=== PATIENT | female | born 1985 | race Hispanic/Latino ===

== ENCOUNTER 2017-12-18 23:55 | Emergency (ER) | payer OTHER ==
[2017-12-19 00:08] VITALS: BMI 22.3
[2017-12-19 00:11] VITALS: BP 128/85; PULSE 62; RESP 18; TEMP 98.2; O2SAT 100
--- NOTE | 2017-12-19 00:42 | ED PDOC ---
HPI: Abdomen Time Seen by Provider: 12/19/17 00:12 Chief Complaint (Nursing): Abdominal Pain History Per: Patient Additional Complaint(s): Pt. states at approximately 2300 today she had a sudden onset of diffuse abd pain which eventually localized to b/l pelvic area and has since resolved. Pt. states at 2320 she took aleve with good relief of pain. Pain resolved while waiting in ED waiting room. Of note, pt. states she currently has an IUD in place. Her IUD was inserted back in 05/2017. Last BM was yesterday and as normal. Denies dysuria, hematuria, vaginal bleeding, N/V/D, fever, back pain. Past Medical History Reviewed: Historical Data, Nursing Documentation, Vital Signs Vital Signs: Last Vital Signs Temp 98.2 F 12/19/17 00:09 Pulse 62 12/19/17 00:09 Resp 18 12/19/17 00:09 BP 128/85 12/19/17 00:09 Pulse Ox 100 12/19/17 02:32 - Medical History PMH: HTN - Family History Family History: States: No Known Family Hx - Home Medications Home Medications: Ambulatory Orders Medication Instructions Recorded Metoprolol Tartrate [Lopressor] 12.5 mg PO DAILY 12/19/17 - Allergies Allergies/Adverse Reactions: Allergies Allergy/AdvReac Type Severity Reaction Status Date / Time Penicillins Allergy RASH Verified 12/19/17 00:09 Review of Systems ROS Statement: Except As Marked, All Systems Reviewed And Found Negative Gastrointestinal: Positive for: Abdominal Pain Genitourinary Female: Positive for: Pelvic Pain Physical Exam - Physical Exam Appears: Positive for: Well, Non-toxic, No Acute Distress Skin: Positive for: Normal Color, Warm. Negative for: Rash Eye Exam: Positive for: Normal appearance Gastrointestinal/Abdominal: Positive for: Normal Exam, Bowel Sounds, Soft. Negative for: Tenderness (including pelvic area), Guarding, Rebound Back: Positive for: Normal Inspection. Negative for: L CVA Tenderness, R CVA Tenderness Neurologic/Psych: Positive for: Alert, Oriented (x3) - Laboratory Results Result Diagrams: 12/19/17 00:53 12/19/17 00:53 - ECG O2 Sat by Pulse Oximetry: 100 - Progress ED Course And Treament: Labs ordered. Pt. informed that US is not currently indicated and imaging will depend on lab results. Case d/w Dr. Krishnan who agrees with care and plan. WBC 11.3. CT abd/pelvis w/ IV contrast ordered. Pt. informed of CT order and agrees with care. 0216 CT abd/pelvis w/ IV contrast: 3.3 cm right ovarian corpus luteum cyst. Small amount of complex fluid in the dependent pelvis and dependent portions of the upper abdomen. In the absence of trauma, ovarian cyst rupture could have this appearance. No direct evidence of visceral injury. Dr. Krishnan reviewed CT results and agrees with plan and disposition. Pt. informed of results. Denies trauma. Advised to f/u with her OBGYN for further evaluation and to return to ED immediately if symptoms worsen. Disposition - Clinical Impression Clinical Impression: Ruptured ovarian cyst - Patient ED Disposition Is Patient to be Admitted: No - Disposition Referrals: Jacky Hays MD [Primary Care Provider] - [facility] [Outside] Disposition: Routine/Home Disposition Time: 02:28 Condition: IMPROVED Additional Instructions: FOLLOW UP WITH YOUR OBGYN FOR FURTHER EVALUATION ROOPA VERNON, thank you for letting us take care of you today. Your provider was Reggie Krishnan MD and you were treated for ABD PAIN. The emergency medical care you received today was directed at your acute symptoms. If you were prescribed any medication, please fill it and take as directed. It may take several days for your symptoms to resolve. Return to the Emergency Department if your symptoms worsen, do not improve, or if you have any other problems. Please contact your doctor or call one of the physicians/clinics you have been referred to that are listed on the Patient Visit Information form that is included in your discharge packet. Bring any paperwork you were given at discharge with you along with any medications you are taking to your follow up visit. Our treatment cannot replace ongoing medical care by a primary care provider outside of the emergency department. Thank you for allowing the [facility] team to be part of your care today. If you had an X-Ray or CT scan: A Radiologist will review the ED reading if any change in treatment is needed we will contact you. If you had a blood, urine, or wound culture: It will take several days for the results, if any change in treatment is needed we will contact you. If you had an STI test: It will take 48 hours for the results. Please call after 1 week if you have not heard back. Instructions: Ovarian Cyst (DC) Forms: [employer] (Maori) Print Language: INDONESIAN
[2017-12-19 01:19] LABS: SQUAMOUS EPITHIAL 1 /hpf (0-5); URINE BACTERIA RARE (<OCC); URINE BILIRUBIN NEGATIVE (NEGATIVE); URINE BLOOD NEGATIVE (NEGATIVE); URINE CLARITY CLOUDY (Clear); URINE COLOR YELLOW (YELLOW); URINE GLUCOSE (UA) NEG (Normal); URINE LEUKOCYTE ESTERASE NEG Leu/uL (Negative); URINE PROTEIN 30 mg/dL (NEGATIVE); URINE UROBILINOGEN 0.2-1.0 mg/dL (0.2-1.0)
[2017-12-19 01:20] LABS: ALB/GLOB RATIO 1.4 (1.0-2.1); ALT/SGPT 27 U/L (9-52); AST/SGOT 26 U/L (14-36); BLOOD UREA NITROGEN 14 mg/dl (7-17); CALCIUM 9.3 mg/dL (8.4-10.2); GFR NON-AFRICAN AMERICAN > 60
[2017-12-19 01:29] LABS: BASO # 0.1 K/uL (0.0-0.2); BASO % 0.5 % (0.0-2.0); EOS # 0.1 K/uL (0.0-0.7); EOS % 1.2 % (0.0-4.0); HEMOGLOBIN 11.7 g/dL (12.0-16.0); LYMPH # 4.4 K/uL (1.0-4.3); LYMPH % 39.2 % (20.0-40.0); MEAN CELL VOLUME 86.8 fl (81.0-99.0); MEAN CORPUSCULAR HEMOGLOBIN 28.8 pg (27.0-31.0); MEAN CORPUSCULAR HGB CONC 33.2 g/dL (33.0-37.0); MEAN PLATELET VOLUME 8.7 fl (7.2-11.7); MONO # 0.7 K/uL (0.0-0.8); MONO % 6.2 % (0.0-10.0); NEUT % 52.9 % (50.0-75.0); NRBC % 0.1 % (0.0-0.0); RBC 4.05 Mil/uL (3.80-5.20); RED CELL DISTRIBUTION WIDTH 13.7 % (11.5-14.5); WHITE BLOOD COUNT 11.3 K/uL (4.8-10.8)
[2017-12-19] MEDS ORDERED: Iohexol 300 100 ML IJ ONE (01:39)
[2017-12-19] MEDS ORDERED: Sodium Chloride 0.9% 50 ML IV ONE (01:39)
--- NOTE | 2017-12-19 11:02 | CT ---
Date of service: 12/19/2017 PROCEDURE: CT Abdomen and Pelvis with contrast HISTORY: diffuse abd pain, greatest in pelvic area COMPARISON: None. TECHNIQUE: Contrast dose: Omnipaque 300, 90 cc Radiation dose: Total exam DLP = 270.31 mGy-cm. This CT exam was performed using one or more of the following dose reduction techniques: Automated exposure control, adjustment of the mA and/or kV according to patient size, and/or use of iterative reconstruction technique. FINDINGS: LOWER THORAX: Unremarkable. LIVER: Unremarkable. No gross lesion or ductal dilatation. GALLBLADDER AND BILE DUCTS: Unremarkable. PANCREAS: Unremarkable. No gross lesion or ductal dilatation. SPLEEN: Unremarkable. ADRENALS: Unremarkable. No mass. KIDNEYS AND URETERS: No intrinsic renal pathology appreciate bilaterally, however, there is a mild amount of fluid in the Morillo's pouch measuring 33 Hounsfield units. None is seen at the left. VASCULATURE: Unremarkable. No aortic aneurysm. BOWEL: Unremarkable. No obstruction. No gross mural thickening. APPENDIX: Normal appendix. PERITONEUM: Unremarkable. No free fluid. No free air. LYMPH NODES: Unremarkable. No enlarged lymph nodes. BLADDER: Unremarkable. REPRODUCTIVE: Mild amount of fluid is seen in the pelvis of similar density to that at the Morison's pouch. A right adnexal cyst measures 3.4 x 2.5 cm is thin but slightly irregular wall which may indicate partial rupture. Clinically correlate further. The intrauterine device identified in situ at the uterus. BONES: No acute fracture. OTHER FINDINGS: None. IMPRESSION: Potential partial cyst rupture may be the etiology of minimal pelvic ascites and limited fluid in Morison's pouch. No additional pertinent findings bilaterally other than IUD device in situ at the uterus. This fluid is intermediate density and limited hemorrhage is not excluded. Concordant preliminary report from [facility], 12/19/2017.
== END 2017-12-19 02:40 | disposition home or self-care (01) ==
LOC: H.ER 23:55
DX: N83.291 Other ovarian cyst, right side (principal); I10 Essential (primary) hypertension; Z88.0 Allergy status to penicillin
CPT/HCPCS: 74177; 80053; 81003; 81025; 85025; 99283; Q9967